=== PATIENT | female | born 1990 | race Two or more races ===

== ENCOUNTER 2024-10-09 17:08 | Emergency (ER) | payer OTHER ==
[~2024-10-09] VITALS: Ht 154.9 cm; Wt 79.4 kg
[~2024-10-09 17:08] MED LIST: AUGMENTIN1 TAB.SR2; DOLOGESIC CAPSU1 CAP PO; LOTRISONE CREAM45 GM TP
[2024-10-09] MEDS ORDERED: BENZONATATE 100 MG CAPSULE PO STA (17:45)
[2024-10-09 18:39] LABS: HEMOGLOBIN 14.4 g/dL (12.0-15.00); MEAN CORPUSCULAR HEMOGLOBIN 30.1 pg (27.00-32.0); MEAN CORPUSCULAR HGB CONC 33.4 g/dl (32.0-36.0); PLATELET COUNT 192 K/uL (150-450); RED BLOOD COUNT 4.78 M/uL (4.00-6.00); RED CELL DISTRIBUTION WIDTH 13.4 % (11.5-14.5)
[2024-10-09] MEDS ORDERED: CLARITIN10 M1 PO (19:51)
[2024-10-09] MEDS ORDERED: BENZONATATE100 MG PO (19:51)
== END 2024-10-09 19:58 | disposition home or self-care (01) ==
LOC: ER 17:09
PROVIDERS: General Practice
DX: B34.9 Viral infection, unspecified (principal); R05.9 Cough, unspecified; J00 Acute nasopharyngitis [common cold]; Z20.822 Contact with and (suspected) exposure to COVID-19; Z88.1 Allergy status to other antibiotic agents